=== PATIENT | male | born 1945 | race African-American/Black ===

== ENCOUNTER 2016-12-18 23:15 | Inpatient (IN) | payer OTHER ==
[~2016-12-18] VITALS: Ht 170.2 cm; Wt 88.5 kg
--- NOTE | ~2016-12-18 | O ---
[facility] [place] [address] OPERATIVE REPORT Name: ZENY LIZARRAGA Room #: 437-P [facility] IN M.R.#: [id number] Admission: 12/19/16 Attend Phys: Les Morrissey MD Discharge: 12/20/16 Date of : 45 Report #: [id number] THIS REPORT FOR: //name// CC: Mao [facility] DATE OF SERVICE: 12/19/2016 OR is #4. SURGEON: Jenaro Polo MD FORMULA CHECKER: None. PREOPERATIVE DIAGNOSIS: Right ureteral and renal calculi. POSTOPERATIVE DIAGNOSIS: Right ureteral and renal calculi. PROCEDURES: Cystoscopy, right ureteroscopy, laser lithotripsy, balloon dilation of ureteral orifice, basket stone extraction and stent placement (4.5 x 28). COMPLICATIONS: None. ANESTHETIC: General. ESTIMATED BLOOD LOSS: None. DESCRIPTION OF PROCEDURE: The patient was taken to the operating room and general anesthesia was induced. The patient was then prepped and draped in the usual sterile fashion in the dorsal lithotomy position. The meatus was entered DICTATION ENDS HERE. <ELECTRONICALLY SIGNED> By: Jenaro Polo MD 12/21/16 0757 [id number] 1819 Jenaro Polo MD /nt
--- NOTE | ~2016-12-18 | O ---
[facility] [place] [address] [place] [address] OPERATIVE REPORT Name: ZENY LIZARRAGA Room #: 437-P [facility] IN M.R.#: [id number] Admission: 12/19/16 Attend Phys: Les Morrissey MD Discharge: 12/20/16 Date of : 45 Report #: [id number] THIS REPORT FOR: //name// CC: Mao [address] Dr. ____ NO PCP DATE OF SERVICE: 12/19/2016 Operating Room is #4. SURGEON: Jenaro Polo MD CONSULAR OFFICER: None. PREOPERATIVE DIAGNOSIS: Right ureteral and renal calculi. POSTOPERATIVE DIAGNOSIS: Right ureteral and renal calculi. PROCEDURES: Cystoscopy, right ureteroscopy with balloon dilation of the ureteral orifice, laser lithotripsy, basket stone extraction and right 4.5 x 28 double-J ureteral stent placement. COMPLICATIONS: None. ANESTHESIA: General. ESTIMATED BLOOD LOSS: None. DESCRIPTION OF PROCEDURE: The patient was taken to the operating room and general anesthesia was induced. The patient was prepped and draped in the usual sterile fashion in dorsal lithotomy position. The meatus was entered with rigid cystoscope. The anterior urethra was normal. The sphincter was normal. The prostatic urethra was entered and showed moderate obstruction. I then entered into the bladder. The bladder mucosa systematically examined was normal. The ureteral orifices appeared orthotopic bilaterally. The right ureteral orifice was cannulated with a 0.035 sensor wire. This was advanced past the stone and into the kidney. The ureteral orifice was too small to accommodate the ureteroscope. I therefore balloon dilated it with an 18-Chilean x 4 cm UroMax balloon. I then used the lumen catheter to place a second wire. I then placed a 03/21 ureteral access sheath. The digital flexible ureteroscope was then placed into the patient's right ureter. The ureter showed a proximal right ureteral stone. I then used the holmium laser to fragment the stone into multiple pieces. I then used a 1.9 Chilean nitinol basket to basket and remove each of these pieces. I then went up into the kidney and removed some [facility] [address] [place] [address] OPERATIVE REPORT Name: ELHAMZENY Room #: 437-P [facility] IN M.R.#: [id number] Admission: 12/19/16 Attend Phys: Les Morrissey MD Discharge: 12/20/16 Date of : 45 Report #: [id number] additional renal stones. All sizable stones were removed. There were some very tiny renal stone fragments that were too small to basket and remove. I then withdrew the ureteroscope and examined the ureter. I withdrew the access sheath at the same time and no residual stone fragment was seen. I then replaced the cystoscope and a 4.5 x 28 double-J ureteral stent was advanced over the wire. The dangle was left intact and the stent was deployed. The dangle was secured to his penis using Tegaderm. The patient tolerated the procedure well. He was awakened from anesthesia. He was transferred to recovery in satisfactory condition. He is okay to discharge from my standpoint. He will need to follow up with my nurse on Saturday to have the stent removed. He will then need a 6-week followup appointment with me and renal ultrasound. <ELECTRONICALLY SIGNED> By: Jenaro Polo MD 12/21/16 0756 1759 1835 Jenaro Polo MD /nt
[~2016-12-18 23:15] MED LIST: AMARYL4 MG PO; CIPROFLOXACIN500 M1 PO; EXFORGE 10-1601 EACH PO; HYZAAR 50-12.51 TAB PO; METFORMIN HCL500 MG PO; PROSCAR 5MG TABL5 MG PO; SINGULAIR 10 MG10 M1 PO; TAMSULOSIN HCL0.4 M1 PO; ZOCOR20 MG PO
[2016-12-18 23:21] VITALS: BP 159/99
[2016-12-18] MEDS ORDERED: AMLODIPINE BESY10 MG PO (23:27)
[2016-12-18] MEDS ORDERED: FLONASE 0.05%50 MCG NASAL (23:28)
[2016-12-19 00:14] LABS: ABSOLUTE NEUTROPHILS 7.5 thou/uL (1.4-8.2); BASOPHILS 0.4 % (0.0-2.0); EOSINOPHILS 0.9 % (0.0-3.0); HEMATOCRIT 42.7 % (42.0-52.0); HEMOGLOBIN 14.5 gm/dL (14.0-18.0); LYMPHOCYTES 16.3 % (24.0-44.0); MCHC 33.9 g/dL (28.0-37.0); MCV 88.5 fL (80.0-100.0); MONOCYTES 8.5 % (1.0-8.0); PLATELET COUNT 273 thou/uL (150-400); POLYS 73.9 % (36.0-66.0); RBC 4.82 mil/uL (4.50-6.00); RDW 13.7 % (10.5-14.5); WBC 10.1 thou/uL (4.0-11.0)
[2016-12-19 00:15] LABS: URINE BILIRUBIN NEGATIVE (Negative); URINE BLOOD 2+ (Negative); URINE COLOR YELLOW; URINE GLUCOSE-RANDOM* TRACE (Negative); URINE KETONES NEGATIVE (Negative); URINE LEUKOCYTES-REFLEX NEGATIVE (Negative); URINE PROTEIN (DIPSTICK) NEGATIVE (Negative); URINE SPECIFIC GRAVITY 1.015 (1.003-1.035); URINE UROBILINOGEN 0.2 E.U./dl (0.2-1.0)
[2016-12-19 00:16] LABS: MANUAL DIFF NO
[2016-12-19 00:18] LABS: ANION GAP 13 mmol/L (7-16); BUN 21 mg/dL (7-18); CALCIUM 9.6 mg/dL (8.5-10.1); CHLORIDE 102 mmol/L (98-107); CO2 24 mmol/L (21-32); CREATININE 1.8 mg/dL (0.7-1.3); GLUCOSE 191 mg/dL (74-106); POTASSIUM 4.2 mmol/L (3.5-5.1); SODIUM 139 mmol/L (136-145)
[2016-12-19 00:23] LABS: ALBUMIN 3.9 g/dL (3.4-5.0); ALKALINE PHOSPHATASE 57 U/L (46-116); DIRECT BILIRUBIN < 0.1 mg/dL (<0.1-0.3); SGOT 25 U/L (15-37); SGPT 33 U/L (30-65); TOTAL BILIRUBIN 0.3 mg/dL (<0.1-1.0); TOTAL PROTEIN 7.9 g/dL (6.4-8.2)
[2016-12-19 00:34] LABS: SQUAMOUS 0-3 Few /LPF (0-3)
[2016-12-19 00:35] LABS: CASTS None Seen /LPF (None Seen); CRYSTALS None Seen /LPF (None Seen); URINE RBC 3-10 Few /HPF (0-2); URINE WBC-REFLEX 0-5 Rare /HPF (0-5)
[2016-12-19 04:38] VITALS: BP 140/89
[2016-12-19 04:40] VITALS: BP 146/85
[2016-12-19 07:40] LABS: HEMOGLOBIN 13.4 gm/dL (14.0-18.0); MCH 29.1 pg (26.0-34.0); MCHC 32.6 g/dL (28.0-37.0); MCV 89.3 fL (80.0-100.0); RBC 4.59 mil/uL (4.50-6.00); RDW 13.9 % (10.5-14.5); WBC 7.6 thou/uL (4.0-11.0)
[2016-12-19 07:45] VITALS: BP 140/84
[2016-12-19 07:58] LABS: CREATININE 1.6 mg/dL (0.7-1.3); POTASSIUM 4.2 mmol/L (3.5-5.1)
[2016-12-19 08:09] LABS: INR 1.1; PROTIME 10.9 Seconds (9.3-11.4)
[2016-12-19 15:20] VITALS: BP 146/90
[2016-12-19 19:40] VITALS: BP 143/90
[2016-12-20 00:57] VITALS: BP 126/72
[2016-12-20 04:05] VITALS: BP 137/71
[2016-12-20 08:27] VITALS: BP 147/84
[2016-12-20] MEDS ORDERED: NORCO 5-325 TA1 EACH PO (09:49)
[2016-12-20] MEDS ORDERED: FLOMAX0.4 MG PO (09:49)
[2016-12-20 09:58] VITALS: BP 147/84
== END 2016-12-20 10:41 | disposition home or self-care (01) | DRG 669 ==
LOC: ER 23:15 → EROBS 12-19 03:11 → 4S 12-19 03:11 → ENTRNSPT 12-20 10:30 → EDTRNSPTSTS 12-20 10:32 → 4S 12-20 10:41
PROVIDERS: Emergency Medicine; Nurse Practitioner Family
PROC: 0TC68ZZ Extirpation of Matter from Right Ureter, Via Natural or Artificial Opening Endoscopic (ICD-10-PCS; principal; 2016-12-19)
PROC: 0T768DZ Dilation of Right Ureter with Intraluminal Device, Via Natural or Artificial Opening Endoscopic (ICD-10-PCS; principal; 2016-12-19)
DX: N13.2 Hydronephrosis with renal and ureteral calculous obstruction (principal); N17.9 Acute kidney failure, unspecified; I10 Essential (primary) hypertension; E11.9 Type 2 diabetes mellitus without complications; E78.5 Hyperlipidemia, unspecified; N40.0 Benign prostatic hyperplasia without lower urinary tract symptoms; Z79.899 Other long term (current) drug therapy
CPT/HCPCS: 10195; 50010; 50101; 50164; 50478; 51179; 51776; 53331; 53650; 56674; 56815; 62110; 62900; 70005

== ENCOUNTER 2018-09-20 23:10 | Emergency (ER) | payer OTHER ==
[~2018-09-20] VITALS: Ht 170.2 cm; Wt 84.4 kg
[~2018-09-20 23:10] MED LIST changes: +AMLODIPINE BESY10 MG PO; +FLOMAX0.4 MG PO; +FLONASE 0.05%50 MCG NASAL; +NORCO 5-325 TA1 EACH PO
[2018-09-21] MEDS ORDERED: MOBIC15 MG PO (02:25)
[2018-09-21 02:47] LABS: ABSOLUTE NEUTROPHILS 7.2 thou/uL (1.4-8.2); BASOPHILS 0.6 % (0.0-2.0); EOSINOPHILS 0.7 % (0.0-3.0); HEMATOCRIT 39.2 % (42.0-52.0); HEMOGLOBIN 13.3 gm/dL (14.0-18.0); LYMPHOCYTES 11.9 % (24.0-44.0); MCH 29.8 pg (26.0-34.0); MCHC 33.8 g/dL (28.0-37.0); MCV 88.2 fL (80.0-100.0); MONOCYTES 8.4 % (1.0-8.0); PLATELET COUNT 291 thou/uL (150-400); POLYS 78.4 % (36.0-66.0); RBC 4.45 mil/uL (4.50-6.00); RDW 13.9 % (10.5-14.5); WBC 9.1 thou/uL (4.0-11.0)
[2018-09-21 02:59] LABS: ANION GAP 10 mmol/L (7-16); BUN 14 mg/dL (7-18); CALCIUM 9.5 mg/dL (8.5-10.1); CHLORIDE 103 mmol/L (98-107); CO2 25 mmol/L (21-32); CREATININE 1.4 mg/dL (0.7-1.3); GLUCOSE 168 mg/dL (74-106); POTASSIUM 4.2 mmol/L (3.5-5.1); SODIUM 138 mmol/L (136-145)
[2018-09-21 03:07] LABS: TROPONIN-I <0.06 ng/mL (<0.06)
[2018-09-21] MEDS ORDERED: TESSALON PERLE100 MG PO (03:28)
[2018-09-21] MEDS ORDERED: PROTONIX40 MG PO (03:28)
[2018-09-21] MEDS ORDERED: ZPAK PO (03:28)
[2018-09-21 03:42] VITALS: BP 138/80
--- NOTE | 2018-09-21 11:55 | EKG ---
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 : 1945 Requested By: Herman Alberts Order Number: [id number] MD: Sukhi Gilbert Measurements Intervals [place] Rate: 97 P: 37 KS: 222 QRS: 0 QRSD: 95 T: 15 QT: 346 QTc: 440 Interpretive Statements Sinus rhythm Prolonged KS interval Probable left atrial enlargement No previous ECG available for comparison Electronically Signed On 09-21-2018 11:55:19 CDT by Sukhi Gilbert [email or web address] ��������������������������������������������� <ELECTRONICALLY SIGNED> ���������������������������������������� By: Sukhi Gilbert MD ��������������������������������������������� 09/21/18 1155 0219 0219 Sukhi Gilbert MD /EPI
== END 2018-09-21 03:43 | disposition home or self-care (01) ==
LOC: ER 23:10
PROVIDERS: Emergency Medicine
DX: J18.9 Pneumonia, unspecified organism (principal); J02.9 Acute pharyngitis, unspecified; I10 Essential (primary) hypertension; E11.9 Type 2 diabetes mellitus without complications; N40.0 Benign prostatic hyperplasia without lower urinary tract symptoms; E78.5 Hyperlipidemia, unspecified

== ENCOUNTER 2020-11-21 05:40 | Emergency (ER) | payer OTHER ==
[~2020-11-21] VITALS: Ht 170.2 cm; Wt 84.4 kg
[~2020-11-21 05:40] MED LIST changes: +MOBIC15 MG PO; +PROTONIX40 MG PO; +TESSALON PERLE100 MG PO; +ZPAK PO
[2020-11-21 08:41] VITALS: BP 116/64
[2020-11-21] MEDS ORDERED: TRAMADOL 50 MG50 MG PO (08:51)
== END 2020-11-21 09:45 | disposition home or self-care (01) ==
LOC: ER 05:40
DX: M25.552 Pain in left hip (principal); M25.551 Pain in right hip; M54.5 Low back pain; M79.605 Pain in left leg; M79.604 Pain in right leg; I10 Essential (primary) hypertension; E11.9 Type 2 diabetes mellitus without complications; E78.5 Hyperlipidemia, unspecified; Z98.890 Other specified postprocedural states; Z79.899 Other long term (current) drug therapy; Z79.84 Long term (current) use of oral hypoglycemic drugs; Z79.1 Long term (current) use of non-steroidal anti-inflammatories (NSAID); Z91.09 Other allergy status, other than to drugs and biological substances